=== PATIENT | female | born 1990 | race American Indian/Alaskan Native ===

== ENCOUNTER 2019-12-10 23:32 | Emergency (ER) | payer SELFPAY ==
[2019-12-10 23:53] VITALS: BP 110/72
--- NOTE | 2019-12-11 01:18 | XRay Report ---
CHEST PA AND LATERAL VIEWS INDICATION: MAIN. COMPARISON: None FINDINGS: Support devices: None Heart: Normal Lungs/Pleura: No acute pulmonary or pleural findings. IMPRESSION: 1. No significant abnormality. Signer Name: Rosendo Zafar MD Signed: 12/11/2019 1:13 AM Workstation Name: [id number]
== END 2019-12-11 06:00 | disposition left against medical advice (07) ==
LOC: ED 23:32
DX: R05 Cough (principal); R07.89 Other chest pain; Z53.21 Procedure and treatment not carried out due to patient leaving prior to being seen by health care provider
CPT/HCPCS: 71046; 93005